=== PATIENT | female | born 1980 | race Caucasian/White ===

== ENCOUNTER 2023-08-26 08:24 | Outpatient (CLI) | payer OTHER, BC, SELFPAY ==
--- NOTE | 2023-08-26 08:36 | ECG_ITS ---
Test Date: 2023-08-26 08:51:16 Measurements Intervals [place] Rate: 68 P: 56 MT: 141 QRS: 13 QRSD: 89 T: 1 QT: 375 QTc: 402 Interpretive Statements SINUS RHYTHM NORMAL ELECTROCARDIOGRAM WARNING: DATA QUALITY MAY AFFECT INTERPRETATION No previous ECG available for comparison Electronically Signed On 08-26-2023 13:05:07 CDT by Toni Burgos M.D.
[2023-08-26 09:29] LABS: Anion Gap 5 mmol/L (4-12); Blood Urea Nitrogen 17 mg/dL (7-17); Calcium 9.4 mg/dL (8.4-10.2); Carbon Dioxide 31 mmol/L (22-30); Chloride 102 mmol/L (98-107); Estimated Glomerular Filt Rate > 60; Glucose 104 mg/dL (65-110); Potassium 4.1 mmol/L (3.4-5.0); Sodium 138 mmol/L (137-145)
== END 2023-08-26 08:25 | disposition home or self-care (01) ==
LOC: ANHSURGERY 08:31
PROVIDERS: Anesthesiology; PCP Family Medicine; Visit Provider Surgery
DX: I10 Essential (primary) hypertension (principal); Z79.899 Other long term (current) drug therapy; Z01.818 Encounter for other preprocedural examination
CPT/HCPCS: 36415; 80048; 93005

== ENCOUNTER 2023-09-02 01:45 | Day surgery (SDC) | payer OTHER, BC, SELFPAY ==
[2023-08-21 13:31] VITALS: BMI 30.4
--- NOTE | 2023-08-21 13:43 | PC.NURSE ---
Report to the Outpatient Waiting Room, entrance under the green pavilion located off [facility], at time _1000_ on date _[id number]_. Planned Procedure Time: _1200_. Time changes happen often and if your time is changed the preop area will call you the afternoon before. - You and your visitor will be asked to self-screen and do not enter if you have any COVID symptoms. - A mask is optional within the hospital at this time. Patients may have clear liquids (water, carbonated beverages, clear teas, apple juice) until 3 hours prior to surgery with a maximum of 20 ounces. - No food from midnight until time of surgery Take the following medications with a SIP of water the morning of surgery: __Bupropion and exemestane. DO NOT STOP ANY OF YOUR OTHER PRESCRIPTION MEDICATIONS PRIOR TO SURGERY ?EXCEPT THE FOLLOWING Medications to discontinue per physician None Date to take last dose Please no make-up, nail greenlandic, hairspray, perfume, deodorant, or body powder the day of surgery. No jewelry (including any body piercings) or valuables the day of surgery, leave them at home. Please take a shower or bath the night before, or the morning of, surgery with an antibacterial soap. Wear comfortable, loose fitting clothing. - Jewelry must be removed prior to entering the operating room. Rings and piercings that are not removed may be cut off. - The hospital will not accept responsibility for valuables. - Please leave all valuables, including medications, at home the day of surgery. If you are going home after surgery, a licensed newspaper delivery driver must drive you home. - NO public transportation without another adult if you receive anesthesia. - We recommend that an adult stay with you for 24 hours following discharge. - We also recommend that you do not drive, make important decision, drink alcoholic beverages, or take any drugs that were not prescribed by your health care provider for at least 24 hours after your discharge time. Follow any additional instructions given to you from your surgeon. If you or anyone in your household have experienced Covid symptoms in the past week, please notify your surgeon or the nurse liaison at the phone number below for possible testing. Telephone instructions given to __Crystal___and asked if any additional questions and then verbalized understanding. Patient advised to call surgeon office or pre surgery nurse liaison [phone] if any additional questions.
--- NOTE | 2023-08-21 13:55 | PC.NURSE ---
Report to the Outpatient Waiting Room, entrance under the green pavilion located off [facility], at time _1000_ on date _[id number]_. Planned Procedure Time: _1200_. Time changes happen often and if your time is changed the preop area will call you the afternoon before. - You and your visitor will be asked to self-screen and do not enter if you have any COVID symptoms. - A mask is optional within the hospital at this time. - No food or drink from midnight until time of surgery Take the following medications with a SIP of water the morning of surgery: __Bupropion and Exemestane DO NOT STOP ANY OF YOUR OTHER PRESCRIPTION MEDICATIONS PRIOR TO SURGERY ?EXCEPT THE FOLLOWING Medications to discontinue per physician None Date to take last dose Please no make-up, nail persian, hairspray, perfume, deodorant, or body powder the day of surgery. No jewelry (including any body piercings) or valuables the day of surgery, leave them at home. Please take a shower or bath the night before, or the morning of, surgery with an antibacterial soap. Wear comfortable, loose fitting clothing. - Jewelry must be removed prior to entering the operating room. Rings and piercings that are not removed may be cut off. - The hospital will not accept responsibility for valuables. - Please leave all valuables, including medications, at home the day of surgery. If you are going home after surgery, a licensed distribution driver must drive you home. - NO public transportation without another adult if you receive anesthesia. - We recommend that an adult stay with you for 24 hours following discharge. - We also recommend that you do not drive, make important decision, drink alcoholic beverages, or take any drugs that were not prescribed by your health care provider for at least 24 hours after your discharge time. Follow any additional instructions given to you from your surgeon. If you or anyone in your household have experienced Covid symptoms in the past week, please notify your surgeon or the nurse liaison at the phone number below for possible testing. Telephone instructions given to __Crystal__and asked if any additional questions and then verbalized understanding. Patient advised to call surgeon office or pre surgery nurse liaison [phone] if any additional questions.
[2023-09-02] VITALS (8 sets, daily range): BP systolic 93–134; BP diastolic 57–85; PULSE 68–90; RESP 12–18; TEMP 36.2–36.7; O2SAT 96–100
[2023-09-02] MEDS: ACETAMINOPHEN 500 MG TABLET 1000 MG PO (10:40)
[2023-09-02] MEDS: LACTATED RINGERS 1,000 ML 30 ML IV CONT ×2 (11:02→13:34)
--- NOTE | 2023-09-02 11:31 | PM.IMHP ---
H&P: HPI History of Present Illness Date/Time: 09/02/23 11:31 Chief Complaint: Rectal bleeding, anal fissure Narrative: 43 yo woman presents for rectal exam under anesthesia. She was initially found to have a fissure but has been treating this with topical ointment. Her fissure has improved and she is no longer experiencing painful bowel movements. She is still experiencing rectal bleeding after BMs. She also notes protruding hemorrhoids after BM's that she has to manually reduce. Review of Systems Review of Systems: All systems reviewed & are unremarkable except as noted in HPI and below Constitutional: Constitutional: Denies chills, Denies fever(s), Denies headache(s) and Denies weight loss Eyes: Eyes: Denies change in vision ENT: Denies dizziness, Denies headache(s), Denies neck mass and Denies throat swelling Cardiovascular: Cardiovascular: Denies chest pain, Denies lightheadedness and Denies dyspnea Respiratory: Respiratory: Denies cough, Denies dyspnea and Denies wheezing Gastrointestinal: Gastrointestinal: Denies abdominal pain, Denies change in bowel habits, Denies nausea and Denies vomiting Genitourinary: Genitourinary: Denies hematuria and Denies dysuria Musculoskeletal: Musculoskeletal: Reports as per HPI Integumentary/Breasts: Skin/Breast: Reports as per HPI Neurologic: Denies dizziness and Denies headache(s) Allergic/Immunologic: Allergic/Immunologic: Denies throat swelling and Denies wheezing PMF Past Medical History Medical History Basal cell carcinoma of skin, unspecified Breast cancer IBS (irritable bowel syndrome) Obesity Surgical History Surgical History H/O: hysterectomy Social History Social History Social History: Caffeine-coffee Smoking status: Never smoker Alcohol intake: current Drinks per week: 5 Substance use: current Substance use type: marijuana Other substance usage details: 2-3 times a week. Lack of Transportation: No Lack of Food: Never True Current Housing: I Have Housing Concerned About Future Housing: No Difficulty Paying Gas/Electric Bills: No Difficulty Paying for Meds: No Currently Unemployed: No Education: High School Diploma/GED Difficulty w/ Childcare or Family Care: No Living arrangements: with family Spiritual care concerns: No Meds Home Medications and Allergies Home Medications Medication Instructions Recorded Confirmed Type esomeprazole magnesium 40 mg 40 mg PO DAILY #90 caps 09/05/22 09/02/23 Rx capsule,delayed release (Nexium) exemestane 25 mg tablet 25 mg PO DAILY 05/08/23 09/02/23 History goserelin 3.6 mg subcutaneous 3.6 mg subcut Q28D 05/08/23 09/02/23 History implant (Zoladex) bupropion HCl 150 mg 24 hr tablet, 150 mg PO DAILY 08/21/23 09/02/23 History extended release lisinopril 10 1 tablet PO DAILY 08/21/23 09/02/23 History mg-hydrochlorothiazide 12.5 mg tablet Allergies Allergy/AdvReac Type Severity Reaction Status Date / Time adhesive Allergy Mild Rash Verified 09/02/23 11:02 nitrofurantoin Allergy Unknown Nausea Verified 09/02/23 11:02 Vital Signs Vital Signs - 24 hr 09/02/23 11:03 Temperature 36.2 C L Pulse Rate 70 Respiratory Rate 16 Blood Pressure 134/83 Pulse Oximetry 100 Oxygen Delivery Room Air Exam Const: General: no acute distress and alert Orientation/consciousness: patient oriented x3 HENMT: Head: normocephalic and atraumatic Ears: hearing grossly normal bilaterally Face/Nose/Sinus: Normal nares present Mouth: Yes Normal oral and palatal mucosa present Eyes: Periorbital: periorbital findings normal Sclera: sclerae normal EOM: EOMs intact bilaterally Neck: Neck: normal visual inspection, no lymphadenopathy and trachea midline Chest: Chest palpation & inspection: norm
--- NOTE | 2023-09-02 11:35 | WPDANESEPPF ---
Anes - Initial Pre Proc Eval Procedure: Operation Date: 09/02/23 12:00 Proposed Procedures p Rectal Examination Under Anesthesia, Lateral Internal Sphincterotomy, Possible Hemorrhoid Banding - Beck Mchugh DO Date/Time: 09/02/23 11:35 Surgeon: Beck Mchugh DO Pre Op Diagnosis: anal fissure, rectal bleeding Patient Data Age: 43 Gender: F Height: 1.7 m Weight: 86.8 kg Last Vital Signs Temp 36.2 C L 09/02/23 11:03 Pulse 70 09/02/23 11:03 Resp 16 09/02/23 11:03 BP 134/83 09/02/23 11:03 Pulse Ox 100 09/02/23 11:03 O2 Del Method Room Air 09/02/23 11:03 Allergies Allergy/AdvReac Type Severity Reaction Status Date / Time adhesive Allergy Mild Rash Verified 09/02/23 11:02 nitrofurantoin Allergy Unknown Nausea Verified 09/02/23 11:02 Home Medications Medication Instructions Recorded Confirmed Type esomeprazole magnesium 40 mg 40 mg PO DAILY #90 caps 09/05/22 09/02/23 Rx capsule,delayed release (Nexium) exemestane 25 mg tablet 25 mg PO DAILY 05/08/23 09/02/23 History goserelin 3.6 mg subcutaneous 3.6 mg subcut Q28D 05/08/23 09/02/23 History implant (Zoladex) bupropion HCl 150 mg 24 hr tablet, 150 mg PO DAILY 08/21/23 09/02/23 History extended release lisinopril 10 1 tablet PO DAILY 08/21/23 09/02/23 History mg-hydrochlorothiazide 12.5 mg tablet Patient hx anesthesia problems: none Family hx anesthesia problems: none Results Review: All pre-operative results and documents have been reviewed as part of the pre-operative evaluation. [facility] Past Medical History Medical History (Updated 09/02/23 @ 11:38 by Jose Alejandro Ornelas DO) Basal cell carcinoma of skin, unspecified Breast cancer Hypertension IBS (irritable bowel syndrome) Obesity Surgical History Surgical History H/O: hysterectomy Social History Social History Social History: Caffeine-coffee Smoking status: Never smoker Alcohol intake: current Drinks per week: 5 Substance use: current Substance use type: marijuana Other substance usage details: 2-3 times a week. Lack of Transportation: No Lack of Food: Never True Current Housing: I Have Housing Concerned About Future Housing: No Difficulty Paying Gas/Electric Bills: No Difficulty Paying for Meds: No Currently Unemployed: No Education: High School Diploma/GED Difficulty w/ Childcare or Family Care: No Living arrangements: with family Spiritual care concerns: No Anes - Eval Final PreProcedure Day of Procedure 09/02/23 11:35 Patient weight: obese Heart: regular rate and rhythm Lungs: clear to auscultation Airway: Mallampati scale class II Neurological: alert and oriented Last oral intake: >/= 8 hours ASA classification: III Emergent: no Anesthetic plan: proceed Anesthesia type and monitoring: general LMA and standard monitoring Results Review: All pre-operative results and documents have been reviewed as part of the pre-operative evaluation. Informed Consent: The patient's anesthetic plan and its attendant risks and benefits were discussed with the patient/family/POA. Questions were solicited and answers provided to the satisfaction of the patient/family/POA.
--- NOTE | 2023-09-02 11:35 | WPDHPUPDATE1 ---
History and Physical Update Update Date/Time: 09/02/23 11:35 History and Physical has been reviewed, including an updated exam of the patient. There are NO changes in the patient's condition. Risks, benefits, and alternatives have been discussed and questions answered. Patient agrees to proceed with procedure.
[2023-09-02] MEDS: KETOROLAC 15 MG/ML VIAL (*BKC) IV PUSH (12:01)
[2023-09-02] MEDS: ceFAZolin 2 GM/D5W 50 ML 2 GM/50 ML BAG IVPB (12:11)
[2023-09-02] MEDS: BUPIVACAINE/EPINEPHRINE 0.5% 10 ML VIAL 30 ML INFILTRATE (12:36)
--- NOTE | 2023-09-02 12:52 | W.PM.PROC2 ---
Procedure Note - Detailed Date of Procedure 09/02/23 Pre-op Diagnosis anal fissure, rectal bleeding Post-op Diagnosis Same (Posterior midline anal fissure, grade 3 internal hemorrhoids) Procedure Performed 1. Rectal exam under anesthesia 2. Left lateral internal sphincterotomy 3. Internal hemorrhoid rubber banding x3 Surgeon Beck Mchugh, DO Anesthesia General and Local (0.5% bupivacaine with epinephrine) Indications This is a 43-year-old woman who presented with rectal pain and rectal bleeding the past several months. She was initially treated for any anal fissure with nitroglycerin ointment but was not showing any significant improvement. Discussions had been made with the patient and decision was made to proceed with rectal exam under anesthesia with lateral internal sphincterotomy. Since she was seen in the office originally, her pain has improved but she still does have frequent bright red blood dripping into the toilet after bowel movements. Discussions were also made with possible internal hemorrhoid banding at the time of procedure. Patient agreed to proceed. Findings Rectal exam under anesthesia was performed. The patient was noted to have bleeding at the posterior midline fissure even with gentle palpation and digital rectal exam. 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 She also had some prolapsing internal hemorrhoid tissue in the left lateral, right anterior, and right posterior locations. Left lateral internal sphincterotomy was performed. I also performed internal hemorrhoid banding at the left lateral, right anterior, and right posterior locations. No specimens were obtained for pathology. Description of Procedure Procedure as well as risks, benefits, and alternatives were discussed with the patient. Written consent was obtained and placed in chart prior to procedure. Patient was brought back to surgical suite. She was placed in dorsal lithotomy position on the operating table. Time-out was done to confirm patient and procedure. She was intubated by the anesthesia department. Her perirectal region was prepped and draped in sterile fashion using Betadine prep. Digital rectal exam was initially performed. I then initially inserted a small Hill-Casanova anoscope and inspected the anorectal canal. The posterior midline anal fissure was identified. I then inserted a medium Hill-Casanova anoscope and then exchanged this for a Fansler anoscope. 0.5% bupivacaine with epinephrine was infiltrated in the left lateral perirectal region. A 2 cm incision was made using a 15 blade scalpel directly over the internal sphincter muscle fibers. Electrocautery was used for hemostasis. Blunt dissection was then used with a curved hemostat to isolate some of the internal sphincter muscle fibers. The sphincterotomy was then performed using electrocautery. This was extended high enough into the anal canal to allow for healing of the anal fissure. The incision was then irrigated with sterile saline. Hemostasis appeared adequate and the sphincterotomy appeared adequate to allow for relaxation for fissure healing. The anoderm and anal mucosa was then reapproximated using 3-0 chromic simple interrupted sutures. I then inspected the anal fissure and cauterized the chronic granulation tissue within the wound bed using electrocautery. I then inspected the anal rectal canal again with the medium [place]-Casanova anoscope. Decision was made to perform internal hemorrhoid banding in the left lateral, right anterior, and right posterior locations as there was significant prolapsing internal hemorrhoid tissue in all 3 of these locations. 0.5% bupivacaine with epinephrine was infiltrated at the base of each of these banding locations. One final inspection was made no other abnormalities were noted. 0.5% bupivacaine with epinephrine was then infiltrated locally around the perianal skin and subcutaneous tissue. Reyna g
== END 2023-09-02 14:30 | disposition home or self-care (01) ==
PROVIDERS: PCP Family Medicine; Visit Provider Surgery
PROC: (CPT 46080; principal; 2023-09-02 12:00)
DX: K60.2 Anal fissure, unspecified (principal); K64.2 Third degree hemorrhoids; I10 Essential (primary) hypertension; Z85.3 Personal history of malignant neoplasm of breast; Z79.818 Long term (current) use of other agents affecting estrogen receptors and estrogen levels; E66.9 Obesity, unspecified; Z68.30 Body mass index [BMI] 30.0-30.9, adult; F12.90 Cannabis use, unspecified, uncomplicated
CPT/HCPCS: 46080; 36415; 80048; 93005; A9270; J0690; J1100; J1885; J2250; J2405; J2704; J3010; J7120

== ENCOUNTER 2024-09-08 01:10 | Day surgery (SDC) | payer BC, SELFPAY ==
[2024-08-21 14:44] VITALS: BMI 34.2
[2024-09-08 08:07] VITALS: BP 134/88; PULSE 74; RESP 18; TEMP 36.4; O2SAT 98; BMI 33.5
--- NOTE | 2024-09-08 08:16 | P.PNAN_ITS ---
Anes - Initial Pre Proc Eval Procedure: Operation Date: 09/08/24 09:30 Proposed Procedures p Screening Colonoscopy - Beck Mchugh DO Date/Time: 09/08/24 08:16 Surgeon: Beck Mchugh DO Pre Op Diagnosis: Screening for malignant neoplasm of colon Patient Data Age: 44 Gender: F Height: 1.7 m Weight: 97.1 kg Last Vital Signs Temp 36.4 C 09/08/24 08:07 Pulse 74 09/08/24 08:07 Resp 18 09/08/24 08:07 BP 134/88 09/08/24 08:07 Pulse Ox 98 09/08/24 08:07 O2 Del Method Room Air 09/08/24 08:07 Allergies Allergy/AdvReac Type Severity Reaction Status Date / Time adhesive Allergy Mild Rash Verified 09/08/24 08:06 nitrofurantoin Allergy Unknown Nausea Verified 09/08/24 08:06 Home Medications ?Medication ?Instructions ?Recorded ?Confirmed ?Type exemestane 25 mg tablet 25 mg PO DAILY 05/08/23 08/21/24 History goserelin 3.6 mg subcutaneous 3.6 mg subcut Q28D 05/08/23 08/21/24 History implant (Zoladex) L.acid,gasseri,plant,rham-B.animalis-cran 1 cap PO DAILY 04/15/24 08/21/24 His tory 5 billion cell-250mg capsule (up4 Probiotics Women's) bupropion HCl 300 mg 24 hr tablet, 300 mg PO QAM #90 tabs 04/15/24 08/21/24 Rx extended release fluoxetine 20 mg capsule (Prozac) 20 mg PO DAILY #90 caps 04/15/24 08/21/24 Rx multivitamin 1 tablet PO DAILY 04/15/24 08/21/24 History esomeprazole magnesium 40 mg 40 mg PO DAILY #90 caps 04/22/24 08/21/24 Rx capsule,delayed release (Nexium) lisinopril 20 See Rx Instructions .Route 05/22/24 08/21/24 Rx mg-hydrochlorothiazide 25 mg tablet .COMPLEX #90 tabs semaglutide (weight loss) 0.25 0.25 mg (0.5 mL) subcut WEEKLY #6 08/11/24 08/21/24 Rx mg/0.5 mL subcutaneous pen mL injector (Weluis fernandovy) Patient hx anesthesia problems: none Family hx anesthesia problems: none Results Review: All pre-operative results and documents have been reviewed as part of the pre- operative evaluation. [facility] Past Medical History Medical History Hypertension Breast cancer Obesity IBS (irritable bowel syndrome) Basal cell carcinoma of skin, unspecified Surgical History Surgical History Hx of rectal sphincterotomy 1. Rectal exam under anesthesia 2. Left lateral internal sphincterotomy 3. Internal hemorrhoid rubber banding x3 09/02/23 H/O: hysterectomy Social History Social History Social History: Caffeine-coffee Smoking status: Never smoker Alcohol intake: current Drinks per week: 4 Substance use: current Substance use type: marijuana Other substance usage details: smokes marijuana almost daily Do You Feel Safe in your Home?: Yes Lack of Transportation: No Lack of Food: Never True Current Housing: I Have Housing Concerned About Future Housing: No Difficulty Paying Gas/Electric Bills: No Difficulty Paying for Meds: No Currently Unemployed: No Education: High School Diploma/GED Difficulty w/ Childcare or Family Care: No Living arrangements: with family Spiritual care concerns: No Anes - Eval Final PreProcedure Day of Procedure 09/08/24 08:16 Patient weight: obese Heart: regular rate and rhythm Lungs: clear to auscultation Airway: Mallampati scale class II Neurological: alert and oriented Last oral intake: >/= 8 hours ASA classification: III Emergent: no Anesthetic plan: proceed Anesthesia type and monitoring: general GIVS and standard monitoring Results Review: All pre-operative results and documents have been reviewed as part of the pre- operative evaluation. Informed Consent: The patient's anesthetic plan and its attendant risks and benefits were discussed with the patient/family/POA. Questions were solicited and answers provided to the satisfaction of the patient/family/POA.
[2024-09-08] MEDS: LACTATED RINGERS 1,000 ML 150 ML IV CONT (08:17)
--- NOTE | 2024-09-08 09:16 | P.HP_ITS ---
H&P: HPI History of Present Illness Date/Time: 09/08/24 09:16 Chief Complaint: screening for colorectal cancer Narrative: this is a 44-year-old woman who presents for colonoscopy. She has never had a colonoscopy before. She denies any hematochezia. She denies family history colon cancer Review of Systems Review of Systems: All systems reviewed & are unremarkable except as noted in HPI and below Constitutional: Constitutional: Denies chills, Denies fever(s), Denies heada octavio(s) and Denies weight loss Eyes: Eyes: Denies change in vision ENT: Denies dizziness, Denies headache(s), Denies neck mass and Denies throat swelling Cardiovascular: Cardiovascular: Denies chest pain, Denies lightheadedness and Denies dyspnea Respiratory: Respiratory: Denies cough, Denies dyspnea and Denies wheezing Gastrointestinal: Gastrointestinal: Denies abdominal pain, Denies change in bowel habits, Denies nausea and Denies vomiting Genitourinary: Genitourinary: Denies hematuria and Denies dysuria Musculoskeletal: Musculoskeletal: Reports as per HPI Integumentary/Breasts: Skin/Breast: Reports as per HPI Neurologic: Denies dizziness and Denies headache(s) Allergic/Immunologic: Allergic/Immunologic: Denies throat swelling and Denies wheezing PMFSH Past Medical History Medical History Hypertension Breast cancer Obesity IBS (irritable bowel syndrome) Basal cell carcinoma of skin, unspecified Surgical History Surgical History Hx of rectal sphincterotomy 1. Rectal exam under anesthesia 2. Left lateral internal sphincterotomy 3. Internal hemorrhoid rubber banding x3 09/02/23 H/O: hysterectomy Social History Social History Social History: Caffeine-coffee Smoking status: Never smoker Alcohol intake: current Drinks per week: 4 Substance use: current Substance use type: marijuana Other substance usage details: smokes marijuana almost daily Do You Feel Safe in your Home?: Yes Lack of Transportation: No Lack of Food: Never True Current Housing: I Have Housing Concerned About Future Housing: No Difficulty Paying Gas/Electric Bills: No Difficulty Paying for Meds: No Currently Unemployed: No Education: High School Diploma/GED Difficulty w/ Childcare or Family Care: No Living arrangements: with family Spiritual care concerns: No Meds Home Medications and Allergies Home Medications ?Medication ?Instructions ?Recorded ?Confirmed ?Type exemestane 25 mg tablet 25 mg PO DAILY 05/08/23 08/21/24 History goserelin 3.6 mg subcutaneous 3.6 mg subcut Q28D 05/08/23 08/21/24 History implant (Zoladex) L.acid,gasseri,plant,rham-B.animalis-cran 1 cap PO DAILY 04/15/24 08/21/24 History 5 billion cell-250mg capsule (up4 Probiotics Women's) bupropion HCl 300 mg 24 hr tablet, 300 mg PO QAM #90 tabs 04/15/24 08/21/24 Rx extended release fluoxetine 20 mg capsule (Prozac) 20 mg PO DAILY #90 caps 04/15/24 08/21/24 Rx multivitamin 1 tablet PO DAILY 04/15/24 08/21/24 History esomeprazole magnesium 40 mg 40 mg PO DAILY #90 caps 04/22/24 08/21/24 Rx capsule,delayed release (Nexium) lisinopril 20 See Rx Instructions .Route 05/22/24 08/21/24 Rx mg-hydrochlorothiazide 25 mg tablet .COMPLEX #90 tabs semaglutide (weight loss) 0.25 0.25 mg (0.5 mL) subcut WEEKLY #6 08/11/24 08/21/24 Rx mg/0.5 mL subcutaneous pen mL injector (Wegovy) Allergies Allergy/AdvReac Type Severity Reaction Status Date / Time adhesive Allergy Mild Rash Verified 09/08/24 08:06 nitrofurantoin Allergy Unknown Nausea Verified 09/08/24 08:06 Vital Signs Vital Signs - 24 hr 09/08/24 08:07 Temperature 97.6 F Pulse Rate 74 Respiratory Rate 18 Blood Pressure 134/88 Pulse Oximetry 98 Oxygen Delivery Room Air Exam Const: General: no acute distress and alert Orientation/consciousness: patient oriented x3 HENMT: Head: normocephalic and atraumatic Ears: hearing grossly normal bilaterally Face/Nose/Sinus: Normal nares present Mouth: Yes Normal oral and palatal mucosa present Eyes: Periorbital: periorbital findings normal Sclera: sclerae normal E OM: EOMs intact bilaterally Neck: Neck: normal visual inspection, no lymphadenopathy and trachea midline Chest: Chest palpation & inspection: normal inspection of the chest Resp: Effort & Inspection: normal respiratory effort Auscultation: clear to auscultation bilaterally Cardio: Jugular venous distension: no JVD Rate: regular rate Rhythm: regular rhythm Heart sounds: S1 normal heart sound present and S2 normal heart sound present Peripheral pulses: Peripheral pulses 2+ throughout GI: Inspection: normal to inspection GI Palp: Yes Soft to palpation, No Tenderness to palpation present (GI), No Guarding due to palpation present (GI) and No Rebound tenderness present Percussion: Yes normal to percussion Auscultation: normal bowel sounds : General: Yes no CVA tenderness Back/Spine/Pelvis: Back: no CVA tenderness Neuro: General: patient oriented x3, no focal motor deficits and CN's II-XI intact bilaterally Cognition (Neuro): normal cognition Speech: normal speech Motor exam (neuro): 5/5 motor strength present throughout Extrem: General: capillary refill normal and no clubbing, cyanosis or edema Assessment and Plan Assessment and plan (1) Screening for colorectal cancer: Code(s): Z12.11 - Encounter for screening for malignant neoplasm of colon; Z12.12 - Encounter for screening for malignant neoplasm of rectum Status: Acute Assessment and Plan: I have recommended colonoscopy. I have discussed the procedure, risks, benefits, and alternatives. Questions were answered. Patient is agreeable to proceed.
--- NOTE | 2024-09-08 09:38 | S_PTH ---
PATIENT: Adeline Hernandez LOC: [facility] #:[id number] AGE/SX: 44/F ROOM: RE09/08/[address]: Beck Mchugh DO : 1980 BED: DIS: 09/08/2024 SPEC #: [id number] RECD: 09/08/24 10:00 STATUS: GABRIELLE REQ #: [id number] BEBE: 09/08/24 09:[address]: Beck Mchugh DEPT: [facility] Surgical RECD BY: Shivani Andre ENTERED: 09/08/24 10:00 SP TYPE: Surgical OTHR DR: Toni Albert MD Tissues: A - Rectal Polyp Procedures: Hematoxylin and Eosin Stain Gross and Microscopic Level 4
[2024-09-08 09:42] VITALS: BP 100/99; PULSE 69; RESP 20; O2SAT 100
[2024-09-08 09:52] VITALS: BP 114/82; PULSE 67; RESP 24; O2SAT 100
[2024-09-08 10:02] VITALS: BP 116/75; PULSE 62; RESP 20; O2SAT 100
== END 2024-09-08 10:11 | disposition home or self-care (01) ==
PROVIDERS: PCP Family Medicine; Visit Provider Surgery
PROC: 0DJD8ZZ Inspection of Lower Intestinal Tract, Via Natural or Artificial Opening Endoscopic (ICD-10-PCS; CPT 45378; principal; 2024-09-08 09:30)
DX: Z12.11 Encounter for screening for malignant neoplasm of colon (principal); K62.1 Rectal polyp; K64.8 Other hemorrhoids; K57.30 Diverticulosis of large intestine without perforation or abscess without bleeding; I10 Essential (primary) hypertension; K58.9 Irritable bowel syndrome, unspecified; F12.90 Cannabis use, unspecified, uncomplicated; E66.9 Obesity, unspecified; Z68.33 Body mass index [BMI] 33.0-33.9, adult; Z79.85 Long-term (current) use of injectable non-insulin antidiabetic drugs; Z98.890 Other specified postprocedural states; Z85.3 Personal history of malignant neoplasm of breast; Z85.828 Personal history of other malignant neoplasm of skin
CPT/HCPCS: 45380; 88305; J2003; J2704; J7120